=== PATIENT | male | born 1970 | race Caucasian/White ===

== ENCOUNTER 2025-07-08 15:45 | Outpatient (RCR) | payer BC, SELFPAY | END 2025-09-02 13:59 | disposition home or self-care (01) | PROVIDERS: PCP Surgery | DX: M25.562 Pain in left knee (principal); M17.12 Unilateral primary osteoarthritis, left knee; Z01.818 Encounter for other preprocedural examination; Z51.89 Encounter for other specified aftercare | CPT/HCPCS: 97110; 97140; 97161 ==

== ENCOUNTER 2025-09-04 15:58 | Emergency (ER) | payer BC, SELFPAY ==
[2025-09-04 16:18] VITALS: BP 156/96; PULSE 88; RESP 18; TEMP 36.6; O2SAT 98
--- NOTE | 2025-09-04 16:25 | CRLHL7_ITS ---
For Patients: As a result of the Century Cures Act, medical imaging exams and procedure reports are released immediately into your electronic medical record. You may view this report before your referring provider. If you have questions, please contact your health care provider. INDICATION: Postop knee replacement with pain and swelling in the left calf COMPARISON: None. TECHNIQUE: Smart-scale, color, and duplex Doppler imaging of the left lower extremity veins. Compression and augmentation attempted where anatomically and clinically feasible. FINDINGS: Laterality: Left Examined veins: Common femoral, proximal deep femoral, superficial femoral, popliteal, peroneal, posterior tibial Proximal greater saphenous The examined veins are patent with normal grayscale appearance and normal compressibility where anatomically feasible. Normal color Doppler flow. Normal venous waveforms on duplex Doppler ultrasound with normal augmentation. The right common femoral vein is sampled for comparison and is normal. There is a left popliteal fossa cyst that measures 6.5 x 1.5 x 5.7 cm. IMPRESSION: No deep vein thrombosis in the left lower extremity. There is a left popliteal fossa cyst. Dictated by Crystal Ni MD @ 09/04/2025 5:44:01 PM (Electronically Signed)
--- NOTE | 2025-09-04 17:32 | ED.LOWEXIN ---
HPI - Extremity Injury (Lower) General Date Seen: 09/04/25 Chief Complaint: Extremity Pain/Injury, Lower Stated Complaint: poss blood clot, swollen calf Time Seen by Provider: 09/04/25 16:45 Source: patient Mode of arrival: ambulatory Limitations: no limitations History of Present Illness HPI Narrative: Patient is a 54-year-old male presenting to emergency department for left calf pain. He states he had left knee replacement surgery 4 weeks ago at the [facility] and leg feel. Was having no complications. States he has been ambulating well and physical therapy has going well. Has not had any concerning knee pain. For past 4 days he has been noticing pain and swelling in his left calf. He has no history of blood clots. Denies ever having symptoms like this before. Pain is worse in his legs when he walks around. Has been taking 81 mg aspirin since surgery. Next follow-up visit is 09/23/2025. Denies any recent injuries to the leg. No other concerns noted. Denies chest pain, shortness of breath, lightheadedness, dizziness, weakness, numbness. Related Data Home Medications ?Medication ?Instructions ?Recorded ?Confirmed acetaminophen 500 mg tablet 1,000 mg PO BID 09/04/25 09/04/25 allopurinol 100 mg tablet 200 mg PO DAILY 09/04/25 09/04/25 amlodipine 2.5 mg tablet 2.5 mg PO DAILY 09/04/25 09/04/25 aspirin 81 mg tablet,delayed 81 mg PO BID 09/04/25 09/04/25 release sertraline 50 mg tablet 75 mg PO QAM 09/04/25 09/04/25 Allergies Allergy/AdvReac Type Severity Reaction Status Date / Time No Known Drug Allergies Allergy Verified 09/04/25 16:22 Review of Systems Status of ROS: Reports: 10 or more systems reviewed and unremarkable except as noted in History and below [facility] Social History Smoking Status: Never smoker Do you use any of these nicotine containing products: None How often do you have a drink containing alcohol: monthly or less AUDIT-C Alcohol total score: 1 Non-prescribed substance use: denies use Exam Narrative: Exam Narrative: Const: Well-nourished, Well-developed, in mild distress Eyes: PERRL, no conjunctival injection, and symmetrical lids HENT: Atraumatic external nose and ears. Moist mucous membranes. MSK:Extremities w/o deformity, Normal Active ROM, tenderness noted to left calf. Plus two lower extremity has edema to the left lower extremity up to the knee. No tenderness noted around the knee. No warmth to the knee. Well-healing surgical site. Skin: Warm, Dry. No rashes or lesions. Neuro: Normal Muscle tone, No focal neurological deficits. Psych: Awake, Alert, & Oriented x3. Appropriate mood and affect. Const: Vital Signs, click to edit/add: Vital Signs - 24 hr 09/04/25 16:18 Temperature 97.8 F Pulse Rate [Pulse Oximeter] 88 Respiratory Rate 18 Blood Pressure [Ri ght Upper Arm] 156/96 H Pulse Oximetry 98 Oxygen Delivery Me thod Room Air Course Vital Signs Vital signs: Initial Vital Signs Temperature 97.8 F 09/04/25 16:18 Temperature Source Temporal Artery Scan 09/04/25 16:18 Pulse Rate 88 09/04/25 16:18 Respiratory Rate 18 09/04/25 16:18 Blood Pressure 156/96 H 09/04/25 16:18 Blood Pressure Mean 116 H 09/04/25 16:18 Blood Pressure Position Sitting 09/04/25 16:18 Pulse Oximetry 98 09/04/25 16:18 Oxygen Delivery Method Room Air 09/04/25 16:18 Vital Signs Temperature 97.8 F 09/04/25 16:18 Pulse Rate 88 09/04/25 16:18 Respiratory Rate 18 09/04/25 16:18 Blood Pressure 156/96 H 09/04/25 16:18 Pulse Oximetry 98 09/04/25 16:18 Oxygen Delivery Method Room Air 09/04/25 16:18 Temperature 97.8 F 09/04/25 16:18 Pulse Rate 88 09/04/25 16:18 Respiratory Rate 18 09/04/25 16:18 Blood Pressure 156/96 H 09/04/25 16:18 Pulse Oximetry 98 09/04/25 16:18 Oxygen Delivery Method Room Air 09/04/25 16:18 MDM - Extremity Injury (Lower) MDM Narrative Medical decision making narrative: Patient is a 54-year-old male presenting to the emergency department for left leg pain. Normal limits differential this time is a blood clot. Could also be cellulitis, muscle strain. He is having known new knee pain and no increased warmth to the knee. Low concern for septic arthritis. Ultrasound of left lower extremity was ordered. Ultrasound interpreted by myself and the radiologist showed a popliteal cyst. No signs of a blood clot. He is doing well at this time. He is safe for discharge. Diagnosis: Left popliteal also cyst Imaging Data Venous US: Attestation: I have reviewed the pertinent imaging results. Radiologist's impression: No deep vein thrombosis in the left lower extremity. There is a left popliteal fossa cyst. Dictated by Crystal Ni MD @ 09/04/2025 5:44:01 PM Discharge Plan Discharge Clinical Impression: Malik cyst Qualifiers: Laterality: left Qualified Code(s): M71.22 - Synovial cyst of popliteal space [Malik], left knee Patient Disposition: Home, Self-Care Condition: Stable Instructions: Malik Cyst (ED) Additional Instructions: Your symptoms may be related to your Malik's cyst. This is also known as a popliteal fossa cyst. I recommend calling your surgeon tomorrow not them know we have left leg swelling with a Malik cyst but no DVT and find out if they want you to do anything further. Prescriptions: No Action aspirin 81 mg tablet,delayed release (DR/EC) 81 mg PO BID amlodipine 2.5 mg tablet 2.5 mg PO DAILY allopurinol 100 mg tablet 200 mg PO DAILY acetaminophen 500 mg tablet 1,000 mg PO BID sertraline 50 mg tablet 75 mg PO QAM Follow Up/Referrals: Vito Andrade MD [Primary Care Provider, Family Practice] Stand Alone Forms: MyHealth Info Instructions
== END 2025-09-04 18:07 | disposition home or self-care (01) ==
PROVIDERS: Emergency Provider Student in an Organized Health Care Education/Training Program; PCP Surgery
DX: M71.22 Synovial cyst of popliteal space [Baker], left knee (principal); Z98.890 Other specified postprocedural states; Z96.652 Presence of left artificial knee joint; Z79.82 Long term (current) use of aspirin
CPT/HCPCS: 93971; 99283; 99284